=== PATIENT | female | born 1995 | race Two or more races ===

== ENCOUNTER 2020-03-13 12:36 | Emergency (ER) | payer BC, OTHER ==
[~2020-03-13] VITALS: Ht 154.9 cm; Wt 52.2 kg
[2020-03-13] MEDS ORDERED: predniSONE 50 MG TABLET PO ONE (13:00)
[2020-03-13] MEDS ORDERED: diphenhydrAMINE 50 MG CAPSULE PO ONE (13:00)
[2020-03-13] MEDS ORDERED: predniSONE 20 MG TABLET ONE (13:04)
[2020-03-13] MEDS ORDERED: diphenhydrAMINE 50 MG CAPSULE ONE (13:05)
--- NOTE | 2020-03-13 13:06 | NUR ---
PATIENT WAS SEEN BY MD. MEDS GIVEN ORDERED.
--- NOTE | 2020-03-13 13:09 | NUR ---
DC, RX AND FOLLOW UP INSTRUCTIONS GIVEN AND EXPLAINED TO PATIENT WHO STATES SHE UNDERSTANDS ALL INSTRUCTIONS.
--- NOTE | 2020-03-13 13:13 | NUR ---
PATIENT STATES SHE UNDERSTANDS THAT BENADRYL CAN MAKE HER SLEEPY AND SHE STATES SHE UNDERSTANDS TO TAKE THE PRESCIBED PREDNISONE STARTING TOMMORROW SINCE SHE GOT HER FIRST DOSE TODAY IN ER.
== END 2020-03-13 13:15 | disposition home or self-care (01) ==
LOC: ER 12:36
DX: T78.49XA Other allergy, initial encounter (principal); S80.861A Insect bite (nonvenomous), right lower leg, initial encounter; W57.XXXA Bitten or stung by nonvenomous insect and other nonvenomous arthropods, initial encounter; Y93.9 Activity, unspecified; Y92.89 Other specified places as the place of occurrence of the external cause; Z88.0 Allergy status to penicillin; Z82.49 Family history of ischemic heart disease and other diseases of the circulatory system; R21 Rash and other nonspecific skin eruption
CPT/HCPCS: 99283; J7512; Q0163; A4663